=== PATIENT | female | born 2000 | race Caucasian/White ===

== ENCOUNTER 2024-02-17 15:44 | Emergency (ER) | payer OTHER, SELFPAY ==
--- NOTE | ~2024-02-17 | US_ITS ---
EXAMINATION: US pelvic complete w TV DATE: 02/17/2024 17:44 INDICATION: chemical 12/15 reports has bleeding since TECHNIQUE: Multiple transabdominal and endovaginal sonographic images of the pelvis were obtained. COMPARISON: None. FINDINGS: Uterus: 8.9 x 4.2 x 5.0 cm. 7 mm heterogeneous mostly echogenic focus in the endometrial cavity. Smal l volume endometrial fluid. Endometrial complex measures 12 mm. Right Ovary: 2.6 x 2.9 x 1.8 cm. Vascular flow is present. No adnexal mass. Left Ovary: 2.2 x 1.9 x 3.5 cm. Vascular flow is present. 1.3 cm simple cyst or dominant follicle There is no free fluid in the pelvis. IMPRESSION: Heterogeneous echogenic focus in the endometrial cavity, may represent clot or retained products. Reviewed, dictated and finalized at location K.
[2024-02-17 16:07] VITALS: BP 116/67; PULSE 73; RESP 18; TEMP 36.6; O2SAT 98
[2024-02-17 16:49] LABS: Basophils Absolute Auto 0.1 K/mm3 (0.0-0.1); Basophils Percent Auto 0.7 % (0.2-1.2); Eosinophils Absolute Auto 0.1 K/mm3 (0-0.3); Eosinophils Percent Auto 0.6 % (0-4.4); Hematocrit 39.4 % (37.0-47.0); Hemoglobin 13.5 g/dL (12.0-15.0); Immature Granulocyte Absolute 0.01 K/mm3 (0.00-0.031); Immature Granulocyte Percent A 0.1 % (0-0.5); Lymphocytes Absolute Auto 3.26 K/mm3 (0.9-3.2); Lymphocytes Percent Auto 35.9 % (18.3-44.2); Mean Corpuscular HGB Conc 34.3 g/dl (32-36); Mean Corpuscular Hemoglobin 29.5 pg (26-34); Mean Corpuscular Volume 86.2 fl (80-100); Mean Platelet Volume 9.7 fl (7.4-10.4); Monocytes Absolute Auto 0.7 K/mm3 (0.1-0.6); Monocytes Percent Auto 7.5 % (2.6-8.5); Neutrophils Percent Auto 55.2 % (45.5-73.1); Platelet Count Result 259 k/mm3 (150-375); Red Blood Count 4.57 M/mm3 (4.2-5.4); Red Cell Distribution Width 13.3 % (11.5-14.5); White Blood Count 9.1 K/mm3 (4.5-10.0)
[2024-02-17 16:57] LABS: INR 1.1; Prothrombin Time 14.4 Seconds (11.1-14.7)
[2024-02-17 16:58] LABS: Partial Thromboplastin Time 28.5 Seconds (22.3-36.8)
[2024-02-17 16:59] LABS: Alanine Aminotransferase 13 U/L (6-35); Albumin Level 4.9 g/dL (3.5-5.1); Alkaline Phosphatase 52 U/L (38-126); Anion Gap 11 mmol/L (4-12); Aspartate Amino Transferase 23 U/L (14-36); Bilirubin,Total 0.7 mg/dL (0.2-1.3); Blood Urea Nitrogen 5 mg/dL (7-17); Calcium 9.7 mg/dL (8.4-10.2); Carbon Dioxide 24 mmol/L (22-30); Chloride 104 mmol/L (98-107); Estimated CRCL calculation 99 ml/min; Estimated Glomerular Filt Rate > 60; Glucose 93 mg/dL (65-110); Potassium 3.3 mmol/L (3.4-5.0); Sodium 139 mmol/L (137-145)
[2024-02-17 17:00] VITALS: BP 120/88; PULSE 78; RESP 16; TEMP 36.6; O2SAT 100
[2024-02-17 17:15] LABS: Beta HCG Quantitative 8.79 mIU/ML
--- NOTE | 2024-02-17 17:32 | ED.PREGNANCY ---
HPI - General Chief complaint: Vaginal Bleeding Stated complaint: vaginal bleeding x2 months Time Seen by Provider: 02/17/24 16:39 Source: patient Mode of arrival: ambulatory Limitations: no limitations History of Present Illness HPI Narrative: Patient is a 23-year-old female who presents the ED with report of vaginal bleeding. Patient had a medical 2 months ago through the [facility] in [place]. She had bleeding initially after taking the medication, but this resolved. She then developed bleeding again 1 month ago. She assumed she was started her normal menstrual cycle but states bleeding has since persisted and is intermittently very heavy, bleeding up to 2pads per hour. She also notes having up to quarter-size clots in her blood. She also reports having intermittent lower abd cramping for past 1 week. This made patient A2, also w/ hx of blighted ovum with subsequent D&C. Patient complains of dizziness, lightheadedness, denies nausea, vomiting, fevers, dysuria, hematuria. Patient has been seen and to separate ER hours this week. She was prescribed Sprintec and advised to take this for the bleeding. She has only had the 1st day's dose so far. Related Data Allergies Allergy/AdvReac Type Severity Reaction Status Date / Time citalopram Allergy Unknown Verified 02/17/24 15:46 Review of Systems Review of Systems: CONSTITUTIONAL: Denies fever, chills, or sweats. GASTROINTESTINAL: See HPI GENITOURINARY: See HPI All systems reviewed & are unremarkable except as noted in HPI and below Exam Narrative: GENERAL: Well appearing, well-nourished, non-toxic, in no acute distress. HEAD: Normocephalic, atraumatic. RESPIRATORY: Airway patent, respirations nonlabored. Clear to auscultation bilaterally, no rales, rhonchi, wheezing. CARDIOVASCULAR: Regular rate and rhythm ABDOMINAL: Soft, mild tenderness in R lower and midline lower abdomen, nondistended. Normoactive BS. PELVIC: Normal external genitalia. Mild amount of dark red blood in vaginal vault, some clots present. Able to clear bleeding with Q-tips. No evidence of hemorrhage or pooling of fluid. Cervix appears unremarkable. No fluid coming from cervical os. No significant CMT. MUSCULOSKELETAL: Moves all extremities. No gross deformities. SKIN: Warm, dry, normal color. NEURO: A&O X3. Speech clear. PSYCHIATRIC: Appropriate mood and affect. Normal interaction. Course Vital Signs Vital signs: Vital Signs Temperature 97.8 F 02/17/24 16:07 Pulse Rate 73 02/17/24 16:07 Respiratory Rate 18 02/17/24 16:07 Blood Pressure 116/67 02/17/24 16:07 Pulse Oximetry 98 02/17/24 16:07 Temperature 98.3 F 02/17/24 18:59 Pulse Rate 78 02/17/24 18:59 Respiratory Rate 16 02/17/24 18:59 Blood Pressure 118/68 02/17/24 18:59 Pulse Oximetry 98 02/17/24 18:59 Oxygen Delivery Room Air 02/17/24 17:00 MDM - OB/Uterine Contractions MDM Narrative Medical decision making narrative: Patient presented to ED with 1 month history of vaginal bleeding after medical 2 months ago. Vital signs are stable upon arrival. Cbc without leukocytosis. Stable H&H with hemoglobin 13.5. CMP unremarkable. Beta quant 8.79. Urine with blood, no signs of infection. Pelvic ultrasound was obtained and showing heterogeneous material in endometrial canal, clot versus retained products. Pelvic exam with mild amt of dark red blood, no evidence of hemorrhage or pooling of fluid. Patient has been stable throughout ED stay. No evidence of hemodynamic instability. No evidence of sepsis. Discussed case with Dr. Cannon OBGYElma production stage manager, advised patient may need D&C. Have patient follow-up in office on Tuesday, obtain repeat beta-hCG on Tuesday. If she has issues over the weekend, can contact his office. Discussed these recommendations with patient. She is in agreement with this plan. Otherwise feel patient is stable for discha
[2024-02-17 17:51] LABS: Appearance Urine Cloudy (Clear); Bacteria Urine None Seen /hpf; Bilirubin Urine Negative (Negative); Blood Urine 3+ (Negative); Color Urine Yellow (Yellow); Glucose Urine UA Negative (Negative); Ketones Urine Negative (Negative); Leukocyte Esterase Ur Negative LEU/UL (Negative); Nitrate Urine Negative (Negative); Non Pathogenic Casts 0-2; Protein Urine Negative (Negative); RBC Urine 51-100 /hpf (0-2); Specific Grav Ur 1.019 (1.001-1.035); Squamous Epithelial Cell Urine None Seen /hpf (Few); WBC Urine 0-5 /hpf (0-3)
[2024-02-17 17:53] LABS: Add Urine Microscopic? YES
[2024-02-17 18:10] VITALS: BP 118/60; PULSE 78; RESP 16; TEMP 36.6; O2SAT 100
[2024-02-17 18:59] VITALS: BP 118/68; PULSE 78; RESP 16; TEMP 36.8; O2SAT 98
== END 2024-02-17 19:01 | disposition home or self-care (01) ==
PROVIDERS: Emergency Medicine; Emergency Provider Physician Assistant
DX: N93.8 Other specified abnormal uterine and vaginal bleeding (principal)
CPT/HCPCS: 36415; 76830; 76856; 80053; 81001; 84702; 85025; 85610; 85730; 99284

== ENCOUNTER 2024-02-20 10:10 | Outpatient (CLI) | payer OTHER, SELFPAY ==
[2024-02-20 10:50] LABS: Beta HCG Quantitative 5.39 mIU/ML
== END 2024-02-20 10:11 | disposition home or self-care (01) ==
PROVIDERS: Visit Provider Physician Assistant
DX: N93.8 Other specified abnormal uterine and vaginal bleeding (principal)
CPT/HCPCS: 36415; 84702

== ENCOUNTER 2024-02-22 00:44 | Day surgery (SDC) | payer OTHER, SELFPAY ==
[2024-02-20 15:18] VITALS: BMI 20.9
--- NOTE | 2024-02-20 15:19 | PC.NURSE ---
Report to the Outpatient Waiting Room, entrance under the green pavilion located off [facility], at time _1230_ on date _[id number]_. Planned Procedure Time: _230pm_. Time changes happen often and if your time is changed the preop area will call you the afternoon before. - You and your visitor will be asked to self-screen and do not enter if you have any COVID symptoms. - A mask is optional within the hospital at this time. Patients may have clear liquids (water, carbonated beverages, clear teas, apple juice) until 3 hours prior to surgery with a maximum of 20 ounces. - No food from midnight until time of surgery Take the following medications with a SIP of water the morning of surgery: ____Inhalers Ok. Patient hasn't taken PO meds for past 2 weeks. DO NOT STOP ANY OF YOUR OTHER PRESCRIPTION MEDICATIONS PRIOR TO SURGERY ?EXCEPT THE FOLLOWING Medications to discontinue per physician None Date to take last dose Please no make-up, nail andorran, hairspray, perfume, deodorant, or body powder the day of surgery. No jewelry (including any body piercings) or valuables the day of surgery, leave them at home. Please take a shower or bath the night before, or the morning of, surgery with an antibacterial soap. Wear comfortable, loose fitting clothing. - Jewelry must be removed prior to entering the operating room. Rings and piercings that are not removed may be cut off. - The hospital will not accept responsibility for valuables. - Please leave all valuables, including medications, at home the day of surgery. If you are going home after surgery, a licensed straight truck driver must drive you home. - NO public transportation without another adult if you receive anesthesia. - We recommend that an adult stay with you for 24 hours following discharge. - We also recommend that you do not drive, make important decision, drink alcoholic beverages, or take any drugs that were not prescribed by your health care provider for at least 24 hours after your discharge time. Follow any additional instructions given to you from your surgeon. If you or anyone in your household have experienced Covid symptoms in the past week, please notify your surgeon or the nurse liaison at the phone number below for possible testing. Telephone instructions given to __Allyssa__and asked if any additional questions and then verbalized understanding. Patient advised to call surgeon office or pre surgery nurse liaison [phone] if any additional questions.
[2024-02-22] VITALS (10 sets, daily range): BP systolic 94–102; BP diastolic 57–67; PULSE 54–68; RESP 12–16; TEMP 36.6; O2SAT 100
--- NOTE | 2024-02-22 12:52 | PM.IMHP ---
H&P: HPI History of Present Illness Date/Time: 02/22/24 12:52 Chief Complaint: vaginal bleeding Incomplete Narrative: 23-year-old who presents for surgical management of incomplete . Patient states she had an elective 2 months ago. was managed with misoprostol. Patient states she took the medications and have the expected 4-5 days of bleeding afterwards. Patient states her bleeding then stopped. Patient states she then started having bleeding on January 14. She suspected this was a new menses. Patient states that bleeding has continued. She states some days are heavier than others. She denies any abnormal or foul discharge. She denies any abdominal tenderness. She denies any fevers, chills, nausea, vomiting. Patient has been to 3 separate emergency rooms to be evaluated for vaginal bleeding. Patient states 1 Emergency Room prescribed her oral contraceptive pills. Patient states she took the pills for 1 day but stopped. Patient was last seen at [facility] room. Pelvic ultrasound was obtained endometrial complex measuring 12 mm with possible echogenic focus. Beta HCG level remains positive, although low at 8. Review of Systems Cardiovascular: Cardiovascular: Denies chest pain, Denies leg edema, Denies palpitations, Denies dyspnea and Denies dyspnea on exertion Respiratory: Respiratory: Denies cough, Denies dyspnea and Denies dyspnea on exertion Gastrointestinal: Gastrointestinal: Denies abdominal pain, Denies constipation, Denies diarrhea, Denies nausea and Denies vomiting Genitourinary: Genitourinary: Denies hematuria, Denies urinary frequency, Denies dysuria, Denies pelvic pain, Denies urinary incontinence and Denies vaginal discharge Neurologic: Reports system reviewed and no additional complaints, except as documented Psychiatric: Psychiatric: Reports no additional psychiatric complaints Endocrine: Endocrine: Denies palpitations PMFSH Past Medical History Medical History (Updated 02/20/24 @ 13:49 by Girish Cannon MD) Anxiety Asthma Depression Surgical History Surgical History (Updated 02/20/24 @ 11:32 by Krista Camilo CMA) History of hysteroscopy D & C History of tonsillectomy Family History Family History (Updated 02/20/24 @ 11:33 by Krista Camilo CMA) Grandparent Breast cancer pt tested positive for BRCA Social History Social History (Updated 02/20/24 @ 11:34 by Krista Camilo CMA) Smoking status: Never smoker Alcohol intake: never Substance use: current Substance use type: marijuana Other substance usage details: daily Living arrangements: with family Occupation/Education: occupation Gender identity (if verbalized by the patient): Female Spiritual care concerns: No Meds Home Medications and Allergies Home Medications Medication Instructions Recorded Confirmed Type albuterol sulfate 90 mcg/actuation 2 puff inhalation QID PRN Dyspnea 02/20/24 02/20/24 History aerosol inhaler budesonide-formoterol HFA 160 2 puff inhalation BID 02/20/24 02/20/24 History mcg-4.5 mcg/actuation aerosol inhaler (Symbicort) fluoxetine 40 mg capsule 40 mg PO DAILY 02/20/24 02/20/24 History hydroxyzine HCl 10 mg tablet 10 mg PO TID 02/20/24 02/20/24 History lamotrigine 25 mg tablet 50 mg PO BID 02/20/24 02/20/24 History Allergies Allergy/AdvReac Type Severity Reaction Status Date / Time citalopram Allergy Mild Itching Verified 02/20/24 15:08 Exam Const: General: no acute distress Eyes: EOM: EOMs intact bilaterally Neck: Neck: supple Thyroid: thyroid normal Chest: Breast/axilla inspection: normal inspection of the breasts Breast/axilla palpation: normal palpation of the breasts, normal palpation of the axillae and no axillary lymphadenopathy Resp: Effort & Inspection: normal respiratory effort Auscultation: clear to auscultation bilaterally Cardio: Rate: regular rate Rhythm: regu
--- NOTE | 2024-02-22 13:48 | P.PNAN_ITS ---
Anes - Initial Pre Proc Eval Procedure: Operation Date: 02/22/24 14:30 Proposed Procedures p Suction Dilation and Curettage - Girish Cannon MD Date/Time: 02/22/24 13:48 Surgeon: Girish Cannon MD Pre Op Diagnosis: missed ab Patient Data Age: 23 Gender: F Height: 1.68 m Weight: 59 kg Allergies Allergy/AdvReac Type Severity Reaction Status Date / Time citalopram Allergy Mild Itching Verified 02/20/24 15:08 Home Medications Medication Instructions Recorded Confirmed Type albuterol sulfate 90 mcg/actuation 2 puff inhalation QID PRN Dyspnea 02/20/24 02/20/24 History aerosol inhaler budesonide-formoterol HFA 160 2 puff inhalation BID 02/20/24 02/20/24 History mcg-4.5 mcg/actuation aerosol inhaler (Symbicort) fluoxetine 40 mg capsule 40 mg PO DAILY 02/20/24 02/20/24 History hydroxyzine HCl 10 mg tablet 10 mg PO TID 02/20/24 02/20/24 History lamotrigine 25 mg tablet 50 mg PO BID 02/20/24 02/20/24 History Laboratory Tests 02/22/24 12:53 Blood Type Pending Antibody Screen Pending Doses of RhIg Required Pending Patient hx anesthesia problems: none Family hx anesthesia problems: none Results Review: All pre-operative results and documents have been reviewed as part of the pre- operative evaluation. [facility] Past Medical History Medical History (Updated 02/20/24 @ 13:49 by Girish Cannon MD) Anxiety Asthma Depression Surgical History Surgical History (Updated 02/20/24 @ 11:32 by Krista Camilo CMA) History of hysteroscopy D & C History of tonsillectomy Family History Family History (Updated 02/20/24 @ 11:33 by Krista Camilo CMA) Grandparent Breast cancer pt tested positive for BRCA Social History Social History (Updated 02/20/24 @ 11:34 by Krista Camilo CMA) Smoking status: Never smoker Alcohol intake: never Substance use: current Substance use type: marijuana Other substance usage details: daily Living arrangements: with family Occupation/Education: occupation Gender identity (if verbalized by the patient): Female Spiritual care concerns: No Anes - Eval Final PreProcedure Day of Procedure 02/22/24 13:48 Patient weight: normal Heart: regular rate and rhythm Lungs: clear to auscultation Airway: Mallampati scale class II Neurological: alert and oriented Last oral intake: >/= 8 hours ASA classification: II Emergent: no Anesthetic plan: proceed Anesthesia type and monitoring: general GIVS and standard monitoring Other findings: she prefers no narcoticsw; will use Toradol Results Review: All pre-operative results and documents have been reviewed as part of the pre- operative evaluation. Informed Consent: The patient's anesthetic plan and its attendant risks and benefits were discussed with the patient/family/POA. Questions were solicited and answers provided to the satisfaction of the patient/family/POA.
[2024-02-22] MEDS: LACTATED RINGERS 1,000 ML 30 ML IV CONT (14:04)
[2024-02-22] MEDS: ACETAMINOPHEN 500 MG TABLET 1000 MG PO (14:04)
--- NOTE | 2024-02-22 14:04 | WPDHPUPDATE1 ---
History and Physical Update Update Date/Time: 02/22/24 14:04 History and Physical has been reviewed, including an updated exam of the patient. There are NO changes in the patient's condition. Risks, benefits, and alternatives have been discussed and questions answered. Patient agrees to proceed with procedure.
[2024-02-22] MEDS: DOXYCYCLINE 100 MG/NS 100 ML 100 MG/100 ML BAG IVPB (14:12)
[2024-02-22] MEDS: LIDOCAINE HCL 1% LOCAL INJ 20 ML VIAL 10 ML INFILTRATE (14:32)
--- NOTE | 2024-02-22 14:35 | W.PM.PROC2 ---
Procedure Note - Detailed Date of Procedure 02/22/24 Pre-op Diagnosis incomplete ab Post-op Diagnosis Same Procedure Performed Suction Dilation & curettage Surgeon Girish Cannon MD Anesthesia MAC Indications incomplete after elective medical Findings intrauterine products of conception Description of Procedure The patient was taken to the operating room after a missed had been noted on on transvaginal ultrasound. The risks, benefits and alternatives of the procedure were reviewed with the patient and informed consent was obtained. The patient was taken to the OR and anesthesia was noted to be adequate. The patient was placed in the dorsolithotomy position. Pelvic exam was performed with findings noted above. The patient was prepped and draped in the usual sterile fashion. Sterile speculum was placed in the vagina and the cervix was grasped with a tenaculum. The cervix was dilated further to allow for passage of a 8 mm suction curette. The 8 mm suction curette was gently advanced to the fundus, suction was activated, and the tip was rotated while being withdrawn to clear the uterus of products. This suction process was repeated 3 additional times due to the quantity of material in the uterus. The sharp curette was introduced and advanced to the fundus to remove any remaining products. The suction curette was reintroduced one final time to ensure all products had been removed. The tenaculum was removed. Good hemostasis was noted. Instrument, sponge, and sharp counts were correct. Patient tolerated the procedure well and was taken to the recovery room in stable condition. Estimated Blood Loss 50 Drains No Packing No Pathology Yes (products of conception) Complications No immediate complications Condition Stable Disposition PACU [facility] Billing Surgery - Charge Forward: Surgery Billing
--- NOTE | 2024-02-22 15:30 | SUR.PHASEI ---
Simple mask removed at 1530.
== END 2024-02-22 16:42 | disposition home or self-care (01) ==
PROVIDERS: Visit Provider Student in an Organized Health Care Education/Training Program
PROC: (CPT 59812; principal; 2024-02-22 14:30)
DX: O07.4 Failed attempted termination of pregnancy without complication (principal); J45.909 Unspecified asthma, uncomplicated; F41.9 Anxiety disorder, unspecified; F32.A Depression, unspecified; Z79.51 Long term (current) use of inhaled steroids; F12.90 Cannabis use, unspecified, uncomplicated
CPT/HCPCS: 59812; 36415; 85461; 86850; 86900; 86901; 88305; A9270; J1100; J1885; J2250; J2405; J2704; J3010; J7120

== ENCOUNTER 2024-12-27 12:24 | Outpatient (CLI) | payer OTHER, SELFPAY ==
--- OUTSIDE RECORDS SUMMARY | 2024-12-27 12:59 | XMS_ITS | Encounter Summary ---
Author Organization [facility] Address [address] [place] [id number] Care Team Providers Care Cosmetology Instructor Name Role Phone Carey Torre Unavailable [phone] Jess Poole NP Primary Care Provider [phone] Jess Poole NP Primary Care Provider [phone] Encounter Details Date Type Department Care Team (Late st Contact Info) Description 11/22/2024 Results Follow-Up [facility] Primary Care at [address] [id number] Jess Poole NP [address] [place] [address] [address] [place] [address] RICK screen w/rflx TENZIN+dsDNA, Iron profile w/ IBC, CBC with auto differential, Additional followed-up results: 3 Social History Tobacco Use Types Packs/Day Years Used Date Smoking Tobacco: Former Cigarettes 0.3 1 E-cigarettes Vaping Smokeless Tobacco: Never Alcohol Use Standard Drinks/Week Comments No 0 (1 standard drink = 0.6 oz pur e alcohol) AUDIT-C Answer Date Recorded Q1: How often do you have a drink containing alcohol? Never 11/20/2024 Q2: How many drinks containi ng alcohol do you have on a typical day when you are drinking? Patient does not drink Q3: How often do you have si x or more drinks on one occasion? Never 11/20/2024 PHQ-2 Answer Date Recorded PHQ-2 Total Score (If total score is 3 or more points, staff should administer the PHQ-9) 2 11/20/2024 PHQ-9 Answer Date Recorded PHQ-9 Total Score 14 04/12/2024 Personal Safety Answer Date Recorded Have you ever been in or are you currently in a harmful physical or emotional relationship or is someone making you feel afraid or unsafe? Denies 02/16/2024 Comments No Sex and Gender Information Value Date Recorded Sex Assigned at Not on file Legal Sex Female 1:08 AM SOCIAL WORK MSW Gender Identity Female 04/05/2024 9:14 PM CDT Sexual Orientation Bisexual 04/05/2024 9: 14 PM CDT documented as of this encounter Plan of Treatment Not on file documented as of this encounter Visit Diagnoses Not on filedocumented in this encounter Care Teams Cosmetology Instructor Relationship Specialty Start Date End Date Jess Poole NP PCP - General Internal Medicine 03/09/24 12/02/24 Jess Poole NP [id number] [address] PCP - General Internal Medicine 12/03/24 Carey Torre PA Physician Asbestos Coverer Physician Asbestos Coverer 02/17/21 documented as of this encounter
--- OUTSIDE RECORDS SUMMARY | 2024-12-27 12:59 | XMS_ITS | Clinical Summary ---
Author Organization [facility] Address [address] [place] [address] Care Team Providers Care Boxing Inspector Name Role Phone Carey Torre Unavailable [phone] Jess Poole NP Primary Care Provider Allergies Active Allergy Reactions Criticality Noted Date Comments Citalopram Rash Medium 03/07/2018 Doxycycline Nausea & Vomiting Low 11/20/2024 Iodine Itching Low 06/08/2018 Medications budesonide-formot Sayra (Symbicort) 160-4.5 mcg/actuation inhalerIndication s:Moderate persistent asthma with acute exacerbation Inhale 2 puffs 2 (two) times a day Rinse mouth with water after use. Do not swallow. 1 each 11 4 Active inhalational spacing device (Aerochamber Plus Z Stat) spacerIndications :Moderate persistent asthma with acute exacerbation 1 unit marking on U-100 syringe 2 (two) times a day 1 each 4 Active fluticasone propionate (FLONASE) 50 mcg/actuation nasal sprayIndications: Allergic rhinitis due to other allergic trigger, unspecified seasonality Administer 2 sprays into each nostril daily 16 g 11 4 Active lamoTRIgine (LaMICtal) 25 mg tabletIndications :Bipolar affective disorder in remission Take 2 tablets (50 mg total) by mouth 2 (two) times a day 180 tablet 3 4 Active FLUoxetine (PROzac) 40 mg capsuleIndication s:Generalized anxiety disorder,Bipolar affective disorder in remission Take 1 capsule (40 mg total) by mouth daily 30 capsule 11 4 04/12/20 25 Active SUMAtriptan (IMITREX) 50 mg tabletIndications :Migraine Take 1 tablet (50 mg total) by mouth once as needed for migraine May repeat after 2 hours. 27 tablet 4 4 06/08/20 25 Active fludrocortisone 0.1 mg tablet Take 1 tablet (0.1 mg total) by mouth daily 30 tablet 11 4 07/12/20 25 Active atogepant 30 mg tablet Take 30 mg by mouth daily 30 tablet 3 5 Active midodrine (PROAMATINE) 5 mg tabletIndications :Symptomatic Orthostatic Hypotension Take 1 tablet (5 mg total) by mouth 2 (two) times a day 180 tablet 3 5 11/08/19 26 Active promethazine (PHENERGAN) 12.5 mg tablet Take 1 tablet (12.5 mg total) by mouth every 6 (six) hours as needed 5 Active Active Problems Problem Noted Date Diagnosed Date Spells of speech arrest 08/22/2024 Migraine 06/08/2024 Assessment & Plan (11/20/2024 8:06 AM CDT): Assessment & Plan (06/08/2024 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 Patient has historically taken Imitrex and Topamax. We will restart those medications. Given patients neurological symptoms and length of migraine will order CT scan w/o contrast. Provided ublrevy samples for patient to try. RLS (restless legs syndrome) 04/12/2024 Assessment & Plan (04/12/2024 4:52 PM CDT): Discontinue scheduled Atarax. Recommend using Unisom with doxylamine for sleep if needed. Start magnesium supplement. Follow up if symptoms persist Mild intermittent asthma without complication Overview (03/09/2024): Follows with allergy Assessment & Plan (03/09/2024 11:16 AM CDT): Follows with Allergy and immunology. Patient is on Symbicort Flonase and albuterol. She reports good control Wellness examination 03/09/2024 Assessment & Plan (03/09/2024 10:37 AM CDT): Routine health maintenance objectives discussed and orders placed for any outstanding screening studies. Physical exam performed as above. Routine annual labs obtained and will be reviewed with patient when results available. Age-appropriate anticipatory guidance and counseling was provided and reviewed including: Encouraged regular physical activity--moderate activity for a total of 150 minutes per week over 3-5 days. Encouraged healthy diet with regular fresh fruits and vegetables limited in processed carbohydrates. Alcohol use Nicotine use Depression screening POTS (postural orthostatic tachycardia syndrome) 03/09/2024 Assessment & Plan (11/20/2024 8:06 AM CDT): Orders: RICK screen w/rflx TENZIN+dsDNA; Future Assessment & Plan (03/09/2024 11:18 AM CDT): Patient indicates past diagnosis. She has never had official treatment. She would like referral to Cardiology. Orthostatic blood pressures are in patient's chart. Is visibly unstable with position changes. BMI 20.0-20.9, adult 03/09/2024 Assessment & Plan (11/20/2024 12:15 PM CDT): Follow a heart healthy diet with regular physical activity. Assessment & Plan (03/09/2024 11:17 AM CDT): Continue to follow a heart healthy diet with regular physical activity. Needle phobia 03/06/2024 Breast cancer screening, high risk patient 03/01 BRCA1 gene mutation positive 02/22/2022 Assessment & Plan (11/20/2024 8:06 AM CDT): Orders: Ambulatory referral to Genetics; Future Assessment & Plan (03/09/2024 11:17 AM CDT): Patient gets annual MRIs. She is followed by Oncology breast health at [facility]. Family history of breast cancer 12/16/2020 Assessment & Plan (11/20/2024 8:06 AM CDT): Orders: Ambulatory referral to Genetics; Future Family history of ovarian cancer 12/16/2020 Assessment & Plan (11/20/2024 8:06 AM CDT): Orders: Ambulatory referral to Genetics; Future Bipolar disorder 08/19/2020 Assessment & Plan (04/12/2024 4:51 PM CDT): Continue Lamictal 50 mg b.i.d.. Refills sent to patient's pharmacy for her. I recommend she be evaluated by Psychiatry. She indicates she does not have a psychiatrist at this time but would like to continue the Prozac and the Lamictal. We will continue to monitor. She denies SI Assessment & Plan (03/09/2024 11:17 AM CDT): Patient is unsure she is actually bipolar. She reports she was diagnosed with bipolar from 1 psychiatrist and borderline personality disorder from another psychiatrist. She currently is following with psychiatry. Patient currently takes Prozac, Atarax, and Lamictal. We will follow their recommendations Generalized anxiety disorder 06/27/2017 Assessment & Plan (04/12/2024 4:52 PM CDT): Patient indicates that she does not have psychiatrist at this time. Refill for Prozac sent to patient's pharmacy. We will continue Prozac and Lamictal. I have advised her to discontinue Atarax and only take it as needed. Assessment & Plan (03/09/2024 11:16 AM CDT): Follows with psychiatry. Patient currently takes Prozac, Atarax, and Lamictal. We will follow their recommendations Resolved Problems Problem Noted Date Diagnosed Date Resolved Date Urinary urgency 12/08/2016 03/09/2024 Chronic cystitis 12/08/2016 03/09/2024 Primary nocturnal enuresis 07/28/2011 0 03/09/2024 Encounters Date Type Department Care Team Description 12/19/2024 3:20 PM CDT Telemedicine [facility] Oncology [facility] [place] [address] Pearl Salvador MD BRCA1 gene mutation positive (Primary Dx); Family history of breast cancer; Breast cancer screening, high risk patient; Encounter for nonprocreative genetic counseling and testing 11/29/2024 Documentation [facility] Primary Care at [address] [phone] Jess Poole NP 11/22/2024 Results Follow-Up [facility] Primary Care at [address] [phone] Jess Poole NP RICK screen w/rflx TENZIN+dsDNA, Iron profile w/ IBC, CBC with auto differential, Additional followed-up results: 3 11/20/2024 8:25 AM CDT - 11/20/2024 11:59 PM [place] [address] Weight loss; POTS (postural orthostatic tachycardia syndrome); Arthralgia, unspecified joint; History of anemia; Family history of diabetes mellitus Discharge Disposition: Discharge to home or self care 11/20/2024 8:15 AM CDT Lab [facility] Outpatient Lab at [address] [phone] BMI 20.0-20.9, adult (Primary Dx) 11/20/2024 7:30 AM CDT Office Visit [facility] Primary Care at [address] [phone] Jess Poole NP BMI 20.0-20.9, adult (Primary Dx); Family history of breast cancer; Family history of ovarian cancer; BRCA1 gene mutation positive; Family history of diabetes mellitus; Migraine without aura and without status migrainosus, not intractable; Weight loss; History of anemia; POTS (postural orthostatic tachycardia syndrome); Arthralgia, unspecified joint 11/19/2024 Orders Only [facility] Oncology [facility] [place] [phone] Pearl Salvador MD BRCA1 gene mutation positive (Primary Dx); Family history of breast cancer 11/07/2024 11:15 AM CDT Office Visit [employer] [facility] [address] [facility] [address] [place] [address] Suresh Tatum MD POTS (postural orthostatic tachycardia syndrome) (Primary Dx) 11/07/2024 Orders Only [employer] [facility] [id number] [place] [address] [address] [place] [address] Suresh Tatum MD POTS (postural orthostatic tachycardia syndrome) (Primary Dx) 10/24/2024 10:00 AM CDT Office Visit [facility] Neurology [address] [place] [phone] Michael Duarte MD Chronic migraine with aura without status migrainosus, not intractable (Primary Dx); Spells of speech arrest from Last 3 Months Immunizations Immunization Administration Dates Next Due DTaP 02/06/2004, 3,01/25/2000,09/10/1999,1 1998,05/04/1999 HPV, Quadrivalent 11/09/2007 Hep B / HiB 09/10/1999,06/10/1999,05/04/1999 Hep B Vaccine 09/10/1999,06/10/1999,05/04/1999 Hib (PRP-OMP) 09/10/1999,06/10/1999,05/04/1999 IPV 02/06/2004, 3,01/25/2000,06/10/1999,1 Influenza, Unspecified 05/29/2023(Deferred: Adriana ent decision) MMR 07/03/2003,06/10/1999 Meningococcal MCV4P (Menactra) 05/04/2016 Tdap 04/25/2019,03/12/2013 Varicella 04/06/2017,07/14/1999 Surgical History Surgery Date Site/Laterality Comments TONSILLECTOMY WISDOM TOOTH EXTRACTION DILATION AND CURETTAGE OF UTERUS 02/21/2024 x 2 Medical History Medical History Date Comments Asthma Enuresis as a child Headache, migraine Anxiety PTSD (post-traumatic stress disorder) Depression Blighted ovum and nonhydatidiform mole Bipolar 1 disorder (HCC) Migraines 2018 POTS (postural orthostatic tachycardia syndrome) Menstrual problem 2022 Family History Medical History Relation Name Comments Anxiety disorder Father Gustavo Bipolar disorder Father Gustavo Depression Father Gustavo Drug abuse Father Gustavo Mental illness Father Gustavo BRCA 1 Maternal Grandmother Peri Breast cancer Maternal Grandmother Peri Cancer Maternal Grandmother Peri Uterine cancer Maternal Grandmother Peri Anxiety disorder Mother Tamia BRCA 1 Mother Tamia Depression Mother Tamia Mental illness Mother Tamia Alcohol abuse Other 1 Diabetes Other 2 Heart disease Other 3 Asthma Son Lang Relation Name Status Comments Brother Nicer Alive Daughter Dianna Alive Father Gustavo Alive Maternal Grandfather Alive Maternal Grandmother Peri Alive Maternal Half-Sister 1 Alive Maternal Half-Sister 2 Erika Alive Mother Tamia Alive Other 1 Other 2 Other 3 Son Lang Alive Social History Tobacco Use Types Packs/Day Years Used Date Smoking Tobacco: Former Cigarettes 0.3 1 E-cigarettes Vaping Smokeless Tobacco: Never Tobacco Cessation:Counseling Given: Not Answered Alcohol Use Standard Drinks/Week Comments No 0 [...] on file Legal 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 Gender Identity Female 04/05/2024 9:14 PM CDT Sexual Orientation Bisexual 04/05/2024 9: 14 PM CDT Obstetrics History Para Term AB IAB SAB Ectopic Multiple Livin g Live Births 4 2 2 1 1 0 2 2 Date Outcome GA Total Labor Labor/2nd/3rd Weight Sex Type Anes PTL Humaira A1 A5 Name Clin SAB 2015 Term M Vag-S pont Epidur al Livin g Complications:None 2018 Term 38w 2d 7h 57m 7h 10m/0h 41m/0h 06m 3.871 kg (8 lb 8.5 oz) F Vag-S pont Epidur al N Livin g 9 9 ANTONIO LSON, GIRLA LLYSS A Carito n, Finn loaiza MD Complications:None Delivery Location:This [facility] Last Filed Vital Signs Vital Sign Reading Time Taken Comments Blood Pressure 90/60 11/20/2024 7:34 AM CDT Pulse 83 11/20/2024 7:34 AM CDT Temperature 36.7 C (98 F) 11/20/2024 7:34 AM CDT Respiratory Rate 16 11/20/2024 7:34 AM CDT Oxygen Saturation 99% 11/20/2024 7:34 AM CDT Inhaled Oxygen Concentration - - Weight 55.8 kg (123 lb) 11/20/2024 7:34 AM CDT Height 165.1 cm (5' 5) 11/20/2024 7:34 AM CDT Body Mass Index 20.47 11/20/2024 7:34 AM CDT Plan of Treatment Health Maintenance Due Date Last Done Comments Cervical Cancer Screening 1998 Hepatitis C Screening 1998 HPV Vaccines (2 - 2-dose series) 05/10/2008 11/09/19 08 Pneumococcal vaccine <65 (1 of 2 - PCV) 2017 Covid-19 Vaccine (2 - 2023-2 5 season) 2024 12/18/2022 Regular Well Visit/Exam 18-64 03/09/2025 03/09/2024 Influenza Vaccine (Season Ended) 2025 Depression Screening 11/20/2025 11/20/2024, 04/12/2024, 04/12/2024, Additional history exists DTaP/Tdap/Td Vaccine (8 - Td or Tdap) 04/25/2029 04/25/2019, 03/12/2013, 02/06/2004, Additional history exists Hepatitis B Screening Completed 09/10/1999 , 09/10/1999, 06/10/1999, Additional history exists Varicella Vaccines Completed 04/06/2017, 07/14/1999 Procedures Procedure Name Priority Date/Time Associated Diagnosis Comments THYROID FUNCTION CASCADE Routine 11/20/2024 7:15 PM CDT Weight loss IRON PROFILE W/ IBC Routine 11/20/2024 7 :15 PM CDT History of anemia DIFFERENTIAL AUTO Routine 11/20/2024 8:2 5 AM CDT Weight loss HEMOGLOBIN A1C Routine 11/20/2024 8:25 AM CDT Family history of diabetes mellitus CBC WITH AUTO DIFFERENTIAL Routine 11/20/2024 8:25 AM CDT Weight loss RICK SCREEN W/REFLEX TENZIN+DSDNA Routine 11/20/2024 8:25 AM CDT Weight loss POTS (postural orthostatic tachycardia syndrome) Arthralgia, unspecified joint from Last 3 Months Results * Thyroid Function [place] (11/20/2024 7:15 PM CDT) TSH 1.15 0.30 - 4.20 mcIUnit/mL Blood 11/20/2024 7:15 PM CDT 11/20/2024 7:15 PM CDT us Jess Poole NP LAB BLOOD ORDERABLES Final Re sult MARY RODRIGUEZ [address] [place] [address] * (ABNORMAL) Iron profile w/ IBC (11/20/2024 7:15 PM CDT) Iron 49 35 - 145 mcg/dl TIBC 291 250 - 400 mcg/dL MARY RODRIGUEZ Transferrin saturation 17(L) 20 - 50 % [facility] Blood 11/20/2024 7:15 PM CDT 11/20/2024 7:15 PM CDT Jess Poole MUSICIAN INSTRUMENTAL LAB BLOOD ORDERABLES Final Re sult Performing Organization Address [facility] de Phone Number MARY RODRIGUEZ [address] [employer] [place], [place] [id number] * RICK screen w/rflx TENZIN+dsDNA (11/20/2024 8:25 AM CDT) RICK Negative Comment: Interpretive Data Normal range for RICK Qualitative Antibody = Negative. 1. RICK is performed using indirect immunofluorescence against HEp-2 cells 2. RICK titers are performed on all positive qualitative results. 3. A significantly positive RICK result is defined as a positive nuclear fluorescence at a titer of 1:80 or greater. 4. 15% of normal people above age 65 have significantly positive RICK results. 5% or less of normal people age 65 or under have significantly positive RICK results. Current interpretive data was last revised on 2020. Testing performed by: [facility], [address] [facility], [place] [address] Blood 11/20/2024 8:25 AM CDT 11/21/2024 10:35 AM CDT Jess Poole MUSICIAN INSTRUMENTAL LAB BLOOD ORDERABLES Final Re sult Performing Organization Address [facility] Co de Phone Number MARY RODRIGUEZ [address] [place] [address] * Differential, auto (11/20/2024 8:25 AM CDT) Neutrophil abs 2.94 1.50 - 6.50 K/cumm Imm gran abs 0.02 0.00 - 0.10 K/cumm [facility] Lymphocyte abs 3.04 0.80 - 3.30 K/cumm [facility] Monocyte abs 0.53 0.20 - 0.80 K/cumm [facility] Eosinophil abs 0.19 0.00 - 0.50 K/cumm [facility] Basophil abs 0.06 0.00 - 0.10 K/cumm [facility] Neutrophil pct 43.4 % [facility] Comment: Interpretive Data Percent cell count reference ranges are not reported, since discordance with absolute values may lead to misinterpretation of CBC data. Current Interpretive Data was last revised on 2017. Imm gran pct 0.3 % MARY Comment: Interpretive Data Percent cell count reference ranges are not reported, since discordance with absolute values may lead to misinterpretation of CBC data. Current Interpretive Data was last revised on 2017. Lymphocyte pct 44.8 % MARY Comment: Interpretive Data Percent cell count reference ranges are not reported, since discordance with absolute values may lead to misinterpretation of CBC data. Current Interpretive Data was last revised on 2017. Monocyte pct 7.8 % MARY Comment: Interpretive Data Percent cell count reference ranges are not reported, since discordance with absolute values may lead to misinterpretation of CBC data. Current Interpretive Data was last revised on 2017. Eosinophil pct 2.8 % MARY Comment: Interpretive Data Percent cell count reference ranges are not reported, since discordance with absolute values may lead to misinterpretation of CBC data. Current Interpretive Data was last revised on 2017. Basophil pct 0.9 % [facility] Comment: Interpretive Data Percent cell count reference ranges are not reported, since discordance with absolute values may lead to misinterpretation of CBC data. Current Interpretive Data was last revised on 2017. Blood 11/20/2024 8:25 AM CDT 11/20/2024 7:15 PM CDT us Jess Poole NP LAB BLOOD ORDERABLES Final Re sult [facility]ARY [facility] [address] [place] [address] * CBC with auto differential (11/20/2024 8:25 AM CDT) WBC 6.78 3.80 - 9.90 K/cumm Hgb 14.1 11.9 - 15.5 g/dL [facility] Hct 42.9 35.6 - 45.5 % [facility] Plt 269 150 - 400 K/cumm [facility] MPV 10.2 9.1 - 12.3 fL [facility] RBC 4.78 3.90 - 5.20 M/cumm [facility] MCV 89.7 81.3 - 96.4 fL [facility] MCH 29.5 27.1 - 33.3 pg [facility] MCHC 32.9 32.3 - 35.7 g/dL [facility] RDW CV 13.6 11.1 - 14.9 % [facility] RDW SD 44.9 35.7 - 48.1 fL [facility] NRBC abs 0.00 0.00 - 0.01 K/cumm [facility] Blood 11/20/2024 8:25 AM CDT 11/20/2024 7:15 PM CDT Jess Poole NP LAB BLOOD ORDERABLES Final Re sult Performing Organization Address [facility] de Phone Number MARY [address] [place] [address] * Hemoglobin A1c (11/20/2024 8:25 AM CDT) [facility] Hgb A1C 4.9 4.0 - 5.6 % Estimated Average Glucose 94 mg/dL [facility] Comment: The ADA recommends reporting an estimated Average Glucose (eAG) with all Hemoglobin A1c results using the equation derived from a study of 507 normal and diabetic adults. Minority populations were underrepresented and children were not included. (Diabetes Care 31:5935-9803, 2008). The eAG is not equivalent to a fasting glucose. Blood 11/20/2024 8:25 AM CDT 11/20/2024 7:15 PM CDT Jess Poole MUSICIAN INSTRUMENTAL LAB BLOOD ORDERABLES Final Re sult Performing Organization Address [facility] Co de Phone Number [facility] [address] [place] [address] from Last 3 Months Insurance [facility] Advance Directives For more information, please contact: [phone] * Full Code (Latest Code Status on File) Date Activated Date Inactivated Comments 07/02/2019 11:16 AM 07/04/2019 5:14 PM * Full Code Date Activated Date Inactivated Comments 07/02/2019 2:41 AM 07/02/2019 11:16 AM Full CPR in case of cardiopulmonary arrest Care Teams Boxing Inspector Relationship Specialty Start Date End Date Jess Poole NP [address] [address] PCP - General Internal Medicine 12/03/24 Carey Torre PA Physician Pbx Mechanic Physician Pbx Mechanic 02/17/21
--- OUTSIDE RECORDS SUMMARY | 2024-12-27 12:59 | XMS_ITS | Referral Summary ---
Author Organization [facility] Address [address] [place] [address] Care Team Providers Care Etl Analyst Developer Name Role Phone Carey Torre Unavailable [phone] Jess Poole NP Primary Care Provider [phone] Encounters Date Type Department Care Team Description 12/19/2024 3:20 PM CDT Telemedicine [facility] Oncology [address] [place] [address] [place] [phone] [place] vi[place] MD BRCA1 gene mutation positive (Primary Dx); Family history of breast cancer; Breast cancer screening, high risk patient; Encounter for nonprocreative genetic counseling and testing 11/29/2024 Documentation [facility] Primary Care at [address] [phone] Jess Poole NP 11/22/2024 Results Follow-Up [facility] Primary Care at [address] [phone] Jess Poole NP RICK screen w/rflx TENZIN+dsDNA, Iron profile w/ IBC, CBC with auto differential, Additional followed-up results: 3 11/20/2024 8:25 AM CDT - 11/20/2024 11:59 PM CDT Hospital Encounter [address] [address] Weight loss; POTS (postural orthostatic tachycardia syndrome); Arthralgia, unspecified joint; History of anemia; Family history of diabetes mellitus Discharge Disposition: Discharge to home or self care 11/20/2024 8:15 AM CDT Lab [facility] Outpatient Lab at [address] [phone] BMI 20.0-20.9, adult (Primary Dx) 11/20/2024 7:30 AM CDT Office Visit [facility] Primary Care at [address] [phone] Jess Poole NP BMI 20.0-20.9, adult (Primary Dx); Family history of breast cancer; Family history of ovarian cancer; BRCA1 gene mutation positive; Family history of diabetes mellitus; Migraine without aura and without status migrainosus, not intractable; Weight loss; History of anemia; POTS (postural orthostatic tachycardia syndrome); Arthralgia, unspecified joint 11/19/2024 Orders Only [facility] Oncology [address] [place] [address] [address] [place] [phone] MadeleinePearl viveros MD BRCA1 gene mutation positive (Primary Dx); Family history of breast cancer 11/07/2024 Orders Only [facility] [address] [place] [phone] Suresh Tatum MD POTS (postural orthostatic tachycardia syndrome) (Primary Dx) 11/07/2024 11:15 AM CDT Office Visit [facility] [address] [place] [phone] Suresh Tatum MD POTS (postural orthostatic tachycardia syndrome) (Primary Dx) 10/24/2024 10:00 AM CDT Office Visit [facility] Neurology [address] [place] [phone] Michael Duarte MD Chronic migraine with aura without status migrainosus, not intractable (Primary Dx); Spells of speech arrest from Last 3 Months Allergies Active Allergy Reactions Criticality Noted Date [...] sprays into each nostril daily 16 g 4 Active lamoTRIgine (LaMICtal) 25 mg tabletIndications :Bipolar affective disorder in remission Take 2 tablets (50 mg total) by mouth 2 (two) times a day 180 tablet 3 4 Active FLUoxetine (PROzac) 40 mg capsuleIndication s:Generalized anxiety disorder,Bipolar affective disorder in remission Take 1 capsule (40 mg total) by mouth daily 30 capsule 4 04/12/20 25 Active SUMAtriptan (IMITREX) 50 [...] CDT): Assessment & Plan (06/08/2024 3:03 PM MOISTURE TESTER): History of chronic migraines. Patient has historically [...] is followed by Oncology breast health at [facility]. Family history of breast cancer 12/16/2020 Assessment [...] 03/09/2024 Primary nocturnal enuresis 07/28/2011 0 03/09/2024 Immunizations Immunization Administration Dates Next Due DTaP 02/06/2004, 3,01/25/2000,09/10/1999,1 1998,05/04/1999 HPV, Quadrivalent 11/09/2007 Hep B / HiB 09/10/1999,06/10/1999,05/04/1999 Hep B Vaccine 09/10/1999,06/10/1999,05/04/1999 Hib (PRP-OMP) 09/10/1999,06/10/1999,05/04/1999 IPV 02/06/2004, 3,01/25/2000,06/10/1999,1 Influenza, Unspecified 05/29/2023(Deferred: Adriana ent decision) MMR 07/03/2003,06/10/1999 Meningococcal MCV4P (Menactra) 05/04/2016 Tdap 04/25/2019,03/12/2013 Varicella 04/06/2017,07/14/1999 Social History Tobacco Use Types Packs/Day Years [...] on file Legal Sex Female 1:08 AM MOISTURE TESTER Gender Identity Female 04/05/2024 9:14 PM CDT Sexual Orientation Bisexual 04/05/2024 9: 14 PM CDT Last Filed Vital Signs Vital Sign Reading [...] 11/20/2024 7:34 AM CDT Plan of Treatment Not on file Procedures Procedure Name Priority Date/Time Associated Diagnosis [...] Last 3 Months Results * Thyroid Function [place] (11/20/2024 7:15 PM CDT) [facility] TSH 1.15 0.30 - 4.20 mcIUnit/mL Blood 11/20/2024 7:15 PM CDT 11/20/2024 7:15 PM CDT Jess Poole DONOR SERVICES COORDINATOR LAB BLOOD ORDERABLES Final Re sult Performing Organization Address City/[facility] Co de Phone Number MARY [phone] [employer] [place] [place] [address] * (ABNORMAL) Iron profile w/ IBC (11/20/2024 7:15 PM CDT) [facility] Iron 49 35 - 145 mcg/dl TIBC 291 250 - 400 mcg/dL [facility] Transferrin saturation 17(L) 20 - 50 % [facility] Blood 11/20/2024 7:15 PM CDT 11/20/2024 7:15 PM CDT [facility] DONOR SERVICES COORDINATOR LAB BLOOD ORDERABLES Final Re sult MARY JENNIFER [address] [place] [employer] [place] [address] * RICK screen w/rflx TENZIN+dsDNA (11/20/2024 8:25 AM CDT) [facility] RICK Negative Comment: Interpretive Data Normal range [...] last revised on 2020. Testing performed by: [facility], [address] [place]., [address] Blood 11/20/2024 8:25 AM CDT 11/21/2024 10:35 AM CDT us Jess Poole NP LAB BLOOD ORDERABLES Final Re sult [facility] [address] [place] [address] * Differential, auto (11/20/2024 8:25 AM CDT) Pathologist [facility] Neutrophil abs 2.94 1.50 - 6.50 K/cumm Imm gran abs 0.02 0.00 - 0.10 K/cumm [facility] Lymphocyte abs 3.04 0.80 - 3.30 K/cumm [facility] Monocyte abs 0.53 0.20 - 0.80 K/cumm [facility] Eosinophil abs 0.19 0.00 - 0.50 K/cumm [facility] Basophil abs 0.06 0.00 - 0.10 K/cumm [facility] Neutrophil pct 43.4 % [facility] Comment: Interpretive Data Percent cell count reference ranges are not reported, since discordance with absolute values may lead to misinterpretation of CBC data. Current Interpretive Data was last revised on 2017. Imm gran pct 0.3 % [facility] Comment: Interpretive Data Percent cell count reference ranges are not reported, since discordance with absolute values may lead to misinterpretation of CBC data. Current Interpretive Data was last revised on 2017. Lymphocyte pct 44.8 % [facility] Comment: Interpretive Data Percent cell count reference ranges are not reported, since discordance with absolute values may lead to misinterpretation of CBC data. Current Interpretive Data was last revised on 2017. Monocyte pct 7.8 % [facility] Comment: Interpretive Data Percent cell count reference ranges are not reported, since discordance with absolute values may lead to misinterpretation of CBC data. Current Interpretive Data was last revised on 2017. Eosinophil pct 2.8 % [facility] Comment: Interpretive Data Percent cell count reference ranges are not reported, since discordance with absolute values may lead to misinterpretation of CBC data. Current Interpretive Data was last revised on 2017. Basophil pct 0.9 % [facility] Comment: Interpretive Data Percent cell count reference ranges are not reported, since discordance with absolute values may lead to misinterpretation of CBC data. Current Interpretive Data was last revised on 2017. Blood 11/20/2024 8:25 AM CDT 11/20/2024 7:15 PM CDT us Jess Poole NP LAB BLOOD ORDERABLES Final Re sult [facility] [address] Department [place] [address] * CBC with auto differential (11/20/2024 8:25 AM CDT) WBC 6.78 3.80 - 9.90 K/cumm Hgb 14.1 11.9 - 15.5 g/dL [facility] Hct 42.9 35.6 - 45.5 % [facility] Plt 269 150 - 400 K/cumm [facility] MPV 10.2 9.1 - 12.3 fL [facility] RBC 4.78 3.90 - 5.20 M/cumm [facility] MCV 89.7 81.3 - 96.4 fL [facility] MCH 29.5 27.1 - 33.3 pg [facility] MCHC 32.9 32.3 - 35.7 g/dL [facility] RDW CV 13.6 11.1 - 14.9 % [facility] RDW SD 44.9 35.7 - 48.1 fL [facility] NRBC abs 0.00 0.00 - 0.01 K/cumm [facility] Blood 11/20/2024 8:25 AM CDT 11/20/2024 7:15 PM CDT Jess Virgilio DONOR SERVICES COORDINATOR LAB BLOOD ORDERABLES Final Re sult Performing Organization Address City/[facility]/ZIP Co de Phone Number [facility] [phone] [employer] [place], [place] [id number] * Hemoglobin A1c (11/20/2024 8:25 AM CDT) Hgb A1C 4.9 4.0 - 5.6 % Estimated Average Glucose 94 mg/dL MARY Comment: The ADA recommends reporting an estimated Average Glucose (eAG) with all Hemoglobin A1c results using the equation derived from a study of 507 normal and diabetic adults. Minority populations were underrepresented and children were not included. (Diabetes Care 31:0764-5685, 2008). The eAG is not equivalent to a fasting glucose. Blood 11/20/2024 8:25 AM CDT 11/20/2024 7:15 PM CDT Jess Poole DONOR SERVICES COORDINATOR LAB BLOOD ORDERABLES Final Re sult Performing Organization Address [facility] Co de Phone Number MARY [phone] [facility] [place] [address] from Last 3 Months Insurance [facility] Advance Directives For more information, please contact: [phone] * Full Code (Latest Code Status on File) Date Activated Date Inactivated Comments 07/02/2019 11:16 AM 07/04/2019 5:14 PM * Full Code Date Activated Date Inactivated Comments 07/02/2019 2:41 AM 07/02/2019 11:16 AM Full CPR in case of cardiopulmonary arrest Care Teams Etl Analyst Developer Relationship Specialty Start Date End Date Jess Poole NP [address] [address] PCP - General Internal Medicine 12/03/24 Carey Torre PA Physician Perinatal Social Worker Physician Perinatal Social Worker 02/17/21
--- OUTSIDE RECORDS SUMMARY | 2024-12-27 12:59 | XMS_ITS | Clinical Summary ---
Author Organization [facility] Address [address] [place] [address] Phone Care Team Providers Care Noc Analyst Name Role Phone Raymond Mandujano MD Primary Care Provider [phone] Allergies Active Allergy Reactions Criticality Noted Date Comments Citalopram Rash 03/07/2018 Medications HYDROcodone-zoila taminophen (NORCO) 5-325 MG Tablet Take 1 Tab by mouth every 6 hours as needed for Pain (and cough). 20 Tab 07/13/2017 Active HYDROcodone-zoila taminophen (NORCO) 5-325 MG Tablet Take 1 Tab by mouth every 6 hours as needed for Moderate or more severe pain. 20 Tab 03/07/2018 Active HYDROcodone-zoila taminophen (NORCO) 5-325 MG Tablet Take 1-2 Tabs by mouth every 4 hours as needed for Moderate or more severe pain. 15 Tab 10/22/2018 Active Family History Medical History Relation Name Comments Other-comment Father Breast Cancer Maternal Grandmother Relation Name Status Comments Father Maternal Grandmother Social History Tobacco Use Types Packs/Day Years Used Date Smoking Tobacco: Former Cigarettes Smokeless Tobacco: Never Alcohol Use Standard Drinks/Week Comments No 0 (1 standard drink = 0.6 oz pur e alcohol) Comments No Sex and Gender Information Value Date Recorded Sex Assigned at Not on file Legal Sex Female 5:39 PM CDT Gender Identity Not on file Sexual Orientation Not on file Last Filed Vital Signs Vital Sign Reading Time Taken Comments Blood Pressure 106/69 10/22/2018 1:37 PM CDT Pulse 63 10/22/2018 1:45 PM CDT Temperature 36.6 C (97.9 F) 10/22/2018 11:11 AM CDT Respiratory Rate 16 10/22/2018 1:45 PM CDT Oxygen Saturation 98% 10/22/2018 1:45 PM CDT Inhaled Oxygen Concentration - - Weight 68 kg (150 lb) 10/22/2018 11:11 AM CDT Height 170.2 cm (5' 7) 10/22/2018 11:11 AM CDT Body Mass Index 23.49 10/22/2018 11:11 AM CDT Plan of Treatment Health Maintenance Due Date Last Done Comments Hepatitis C Virus (HCV) Screening 1998 Human Papillomavirus (HPV) Immunization (2 - 2-dose series) 05/10/2008 11/09/2007 Pap Smear 2019 Influenza Immunization (#1) 2024 SARS-COV-2 Immunization ( season) 2024 Respiratory Syncytial Virus (RSV) Immunization (Adult) (1 - 1-dose 75+ series) 2073 Hepatitis B Immunization Completed 000, 06/10/1999, 05/04/1999 Meningococcal Immunization (ACWY) Completed 05/04/2016 DTaP/Tdap/Td Immunization Discontinued 2018, 03/12/2013, 02/06/2004, Additional history exists TdaP Immunization Completed 04/25/2019, 03/12/2013 Pneumococcal Immunization Combined Aged Out No longer eligible based on patient's age to complete this topic Rotavirus Immunization Aged Out No lo nger eligible based on patient's age to complete this topic Insurance [place]ICAID [place] Advance Directives * Full Code (Latest Code Status on File) Date Activated Date Inactivated Comments 11/10/2015 10:14 AM 11/13/2015 1:00 AM CPR-Full Tr eatment: FULL ARREST: Attempt Resuscitation/CPR wit intubation and mechanical ventilation. PRE-ARREST: Use entire range of life support measures to stabilize the patient. * Full Code Date Activated Date Inactivated Comments 11/10/2015 12:04 AM 11/10/2015 7:03 AM CPR-Full Tr eatment: FULL ARREST: Attempt Resuscitation/CPR wit intubation and mechanical ventilation. PRE-ARREST: Use entire range of life support measures to stabilize the patient. Care Teams Noc Analyst Relationship Specialty Start Date End Date Raymond Mandujano MD [address] [place] [id number] PCP - General Family Medicine 11/10/15
[2025-01-01 14:42] LABS: Anti Mullerian Hormone,Female 9.88 ng/mL (0.69-13.39)
== END 2024-12-27 12:25 | disposition home or self-care (01) ==
LOC: ANHLAB 12:25
PROVIDERS: PCP Nurse Practitioner; Visit Provider Student in an Organized Health Care Education/Training Program
DX: N94.3 Premenstrual tension syndrome (principal)
CPT/HCPCS: 36415; 82670